=== PATIENT | male | born 1985 | race American Indian/Alaskan Native ===

== ENCOUNTER 2020-06-02 02:56 | Observation (INO) | payer OTHER ==
[2020-06-02] MEDS ORDERED: HYDROmorphone 1 MG/1 ML INJ IV ONE ×2 (03:17→05:06)
[2020-06-02] MEDS ORDERED: KETOROLAC 30 MG/1 ML INJ IV ONE (03:17)
[2020-06-02] MEDS ORDERED: SODIUM CHLORIDE 0.9% 1000 ML 1,000 ML IV ONE (03:17)
[2020-06-02] MEDS ORDERED: diphenhydrAMINE 50 MG/ML VIAL IV ONE (03:17)
--- NOTE | 2020-06-02 03:21 | Emergency Department Report ---
ED General Adult HPI - General Chief complaint: Sickle Cell Crisis Stated complaint: SICKLE CELL CRISIS Time Seen by Provider: 06/02/20 03:12 Source: patient, EMS Mode of arrival: Stretcher Limitations: No Limitations - History of Present Illness Initial comments: 35-year-old male, history of sickle cell anemia, presents to ED with pain crisis. Patient is currently inpatient at [facility] on a 1013. He states he began having pain in his back and bilateral legs a couple of hours ago. Patient states this is a location of his usual pain crises. Patient states pain is unrelieved withhot shower, ibuprofen, and oxycodone so he decided to come to the ED. Patient denies any chest pain, shortness of breath, fever. -: This morning Location: back, left, right, lower extremity Radiation: non-radiation Quality: aching Consistency: constant Improves with: none Worsens with: none Associated Symptoms: denies: chest pain, fever/chills, shortness of breath Treatments Prior to Arrival: NSAID, other (oxycontin) - Related Data Allergies Allergy/AdvReac Type Severity Reaction Status Date / Time morphine Allergy Unknown Verified 06/02/20 03:18 ED Review of Systems ROS: Stated complaint: SICKLE CELL CRISIS Other details as noted in HPI Comment: All other systems reviewed and negative Constitutional: denies: chills, fever Respiratory: denies: shortness of breath Cardiovascular: denies: chest pain Musculoskeletal: as per HPI ED Past Medical Hx - Social History Smoking Status: Current Some Day Smoker Substance Use Type: None ED Physical Exam - General Limitations: No Limitations General appearance: alert, in no apparent distress - Head Head exam: Present: atraumatic, normocephalic - Eye Eye exam: Present: normal appearance, EOMI - ENT ENT exam: Present: mucous membranes moist - Neck Neck exam: Present: normal inspection - Respiratory Respiratory exam: Present: normal lung sounds bilaterally. Absent: respiratory distress - Cardiovascular Cardiovascular Exam: Present: regular rate, normal rhythm - GI/Abdominal GI/Abdominal exam: Present: soft. Absent: distended, tenderness - Extremities Exam Extremities exam: Present: normal inspection - Neurological Exam Neurological exam: Present: alert, oriented X3 - Psychiatric Psychiatric exam: Present: normal affect, normal mood - Skin Skin exam: Present: warm, dry, intact, normal color ED Course Vital Signs 06/02/20 06/02/20 06/02/20 03:05 03:17 03:30 Temperature 98.1 F Pulse Rate 86 85 Respiratory 18 18 12 Rate Blood Pressure 121/57 121/57 O2 Sat by Pulse 96 Oximetry 06/02/20 06/02/20 06/02/20 03:46 04:00 04:16 Temperature Pulse Rate 85 89 102 H Respiratory 12 14 17 Rate Blood Pressure 108/59 108/59 108/59 O2 Sat by Pulse 91 94 95 Oximetry ED Medical Decision Making - Lab Data Result diagrams: 06/02/20 04:06 06/02/20 04:06 Critical care attestation.: If time is entered above; I have spent that time in minutes in the direct care of this critically ill patient, excluding procedure time. ED Disposition Clinical Impression: Sickle cell anemia with crisis Disposition: 09 OP ADMIT IP TO THIS HOSP Is pt being admited?: Yes Condition: Stable Time of Disposition: 05:09
[2020-06-02 04:31] LABS: Hemoglobin 7.2 gm/dl (11.8-15.2); Mean Corpuscular HGB Conc 36 % (32-34); Mean Corpuscular Volume 102 fl (84-94); Platelet Count 398 K/mm3 (140-440); Red Blood Count 1.96 M/mm3 (3.65-5.03)
[2020-06-02 04:36] LABS: Blood Urea Nitrogen 12 mg/dL (9-20); Hemolysis Index 30
[2020-06-02 04:55] LABS: BUN/Creatinine Ratio 24
[2020-06-02 04:57] LABS: Hematocrit 19.9 % (35.5-45.6); Red Cell Distribution Width 23.8 % (13.2-15.2)
[2020-06-02] MEDS ORDERED: SODIUM CHLORIDE 0.9% 500 ML 500 ML IV ONE (05:10)
[2020-06-02] MEDS ORDERED: NALOXONE 0.4 MG/1 ML INJ IV PRN (05:12)
[2020-06-02] MEDS ORDERED: MAGNESIUM HYDROXIDE (MOM) ORAL LIQD UDC PO PRN (05:12)
[2020-06-02] MEDS ORDERED: ONDANSETRON 4 MG/2 ML INJ IV PRN (05:12)
[2020-06-02] MEDS ORDERED: diphenhydrAMINE 50 MG/ML VIAL IV PRN (05:16)
[2020-06-02] MEDS ORDERED: NICOTINE 14 MG/24 HR PATCH TD PRN (05:19)
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
[2020-06-02 08:32] LABS: Total Cells Counted 100
[2020-06-02 08:36] LABS: Anisocytosis 2+
[2020-06-02 08:37] LABS: Ovalocytes 1+; Poikilocytosis 2+; Sickle Cells Rare; Target Cells Few
[2020-06-02 08:38] LABS: Platelet Estimate Consistent w Auto
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
[2020-06-02] MEDS: KETOROLAC 30 MG/1 ML INJ IV SCH ×4 (09:45→23:44)
--- NOTE | 2020-06-02 12:41 | Event Note ---
Date: 06/02/20 Patient admitted this am, Continue current plan of care, will obtain [facility] consult considering NOTED 7000
[2020-06-02] MEDS ORDERED: SODIUM CHLORIDE 0.9% 1000 ML 1,000 ML ONE (14:13)
[2020-06-02] MEDS: HYDROmorphone 2 MG/1 ML INJ IV PRN ×2 (14:22→21:20)
[2020-06-02] MEDS: HEPARIN 5,000 UNIT/1 ML VIAL SUB-Q SCH ×2 (14:23→22:51)
[2020-06-02] MEDS: MULTIVITAMINS ,THERAPEUTIC TAB PO SCH (14:23)
[2020-06-02] MEDS: FOLIC ACID 1 MG TAB PO SCH (14:23)
[2020-06-02] MEDS: D5W/0.45% NACL 1,000 ML IV SCH (14:24)
[2020-06-02] MEDS: GABAPENTIN 300 MG CAP PO SCH ×3 (14:24→22:50)
[2020-06-02] MEDS: oxyCODONE ER 20 MG TAB PO SCH ×3 (16:15→22:50)
[2020-06-02] MEDS: HYDROXYUREA 500 MG CAP PO SCH (19:22)
[2020-06-02] MEDS ORDERED: SENNOSIDES 8.6 MG TAB PO SCH (22:00)
[2020-06-02] MEDS ORDERED: risperiDONE 1 MG TAB PO SCH (22:00)
[2020-06-03] MEDS: D5W/0.45% NACL 1,000 ML IV SCH (03:00)
[2020-06-03] MEDS: HYDROmorphone 2 MG/1 ML INJ IV PRN (03:51)
[2020-06-03] MEDS: oxyCODONE ER 20 MG TAB PO SCH (05:59)
[2020-06-03] MEDS: KETOROLAC 30 MG/1 ML INJ IV SCH (06:00)
[2020-06-03] MEDS: GABAPENTIN 300 MG CAP PO SCH (06:02)
[2020-06-03 06:47] LABS: Mean Corpuscular Volume 97 fl (84-94); Platelet Count 419 K/mm3 (140-440); Red Blood Count 2.39 M/mm3 (3.65-5.03)
[2020-06-03 06:50] LABS: Hematocrit 23.1 % (35.5-45.6); Hemoglobin 8.8 gm/dl (11.8-15.2)
[2020-06-03 06:51] LABS: Mean Corpuscular HGB Conc 35 % (32-34)
[2020-06-03 06:52] LABS: Basophils # (Auto) 0.2 K/mm3 (0.0-0.1); Eosinophils # (Auto) 0.4 K/mm3 (0.0-0.4); Lymphocytes # (Auto) 2.8 K/mm3 (1.2-5.4); Lymphocytes % (Auto) 22.1 % (13.4-35.0); Monocytes # (Auto) 1.6 K/mm3 (0.0-0.8); Monocytes % (Auto) 12.7 % (0.0-7.3)
[2020-06-03 07:30] VITALS: BP 135/81
[2020-06-03] MEDS ORDERED: HYDROmorphone 1 MG/1 ML INJ IV NR (08:58)
[2020-06-03] MEDS: HEPARIN 5,000 UNIT/1 ML VIAL SUB-Q SCH (09:30)
[2020-06-03] MEDS: MULTIVITAMINS ,THERAPEUTIC TAB PO SCH (09:30)
[2020-06-03] MEDS: FOLIC ACID 1 MG TAB PO SCH (09:31)
[2020-06-03] MEDS: HYDROXYUREA 500 MG CAP PO SCH (09:43)
--- NOTE | 2020-06-03 10:10 | Consultation ---
History of Present Illness - Reason for Consult Consult date: 06/03/20 Reason for consult: from [place] - History of Present Psychiatric Illness Per ED Note: 35-year-old male, history of sickle cell anemia, presents to ED with pain crisis. Patient is currently inpatient at [facility] on a 1013. He states he began having pain in his back and bilateral legs a couple of hours ago. Patient states this is a location of his usual pain crises. Patient states pain is unrelieved withhot shower, ibuprofen, and oxycodone so he decided to come to the ED. Patient denies any chest pain, shortness of breath, fever. Kartik Berg is a 35 y/o male patient who was admitted to the hospital for back and leg pain. He has a history of sickle cell anemia. The patient was as inpatient at [facility]. During my interview with the patient he is sitting on side of the bed. He is calm, cooperative and polite. He says he was sent to [facility] because he had a few words with a doctor. He says he sent me for acting out, I guess. The patient says "I wasn't suicidal or homicidal." The patient also presently denies SI/HI or hallucinations of any kind. He denies ever having an attempt of suicide. He also denies any fear of feelings of endangerment. He says he "feels good but in a little pain." He denies any psych history before the [facility] incident. He also denies being on any psych medications. The patient denies any illicit drug use, alcohol or nicotine. PAST PSYCHIATRIC HISTORY: Diagnoses: Denies Suicide attempts or Self-harm behavior: Denies Prior psychiatric hospitalizations: [facility] recently Substance Abuse history: Denies Previous psychiatric medications tried: Denies Outpatient treatment: Denies PAST MEDICAL HISTORY: Sickle cell anemia Family Psychiatric History: None reported or documented SOCIAL HISTORY Marital Status: Single Living Arrangements: alone Employment Status: Disabled Access to guns/weapons: Denies Education: high school History of Abuse: Denies Legal History: None reported REVIEW OF SYSTEMS Constitutional: Negative for weight loss ENT: Negative for stridor Respiratory: Negative for cough or hemoptysis All other systems reviewed and are negative MENTAL STATUS EXAMINATION General Appearance and Behavior: Age appropriate, good hygiene, wearing appropr iate clothes, good eye contact, calm, cooperative, polite Cooperation: Participating/engaged Psychomotor Behavior: Psychomotor normal Mood: good Affect and affective range: congruent with stated mood, Euthymic Thought Process: goal directed Thought Content: Denies Speech: Normal rate, volume and rhythm Suicidal Ideation: Denies Homicidal Ideation: Denies Hallucinations: Denies Impulse Control: Unimpaired Insight and Judgment: Normal insight and judgment Memory: Normal Attention: Normal Orientation: Alert, oriented Assessment and Plan (1) Mental Health Evaluation Treatment Plan No medications at this time Sitter: Per primary Medical: per primary Disposition: Do not recommend psychiatric inpatient treatment Will sign off. Thank you for this consult. The patient to follow up with his primary in 7 to 14 days upon discharge Case staffed with Dr. Fischer Medications and Allergies Allergies Allergy/AdvReac Type Severity Reaction Status Date / Time morphine Allergy Unknown Verified 06/02/20 03:18 Active Meds: Active Medications Bisacodyl (Bisacodyl 10 Mg Rect Supp) 10 mg [place] QDAY PRN PRN Reason: Constipation unrelieved by MOM Diphenhydramine HCl (Diphenhydramine 50 Mg/Ml Vial) 25 mg IV Q6H PRN PRN Reason: Itching Folic Acid (Folic Acid 1 Mg Tab) 1 mg PO QDAY [facility] Last Admin: 06/03/20 09:31 Dose: 1 mg Documented by: Gabapentin (Gabapentin 300 Mg Cap) 300 mg PO Q8HR [facility] Last Admin: 06/03/20 06:02 Dose: 300 mg Documented by: Heparin Sodium (Porcine) (Heparin 5,000 Unit/1 Ml Vial) 5,000 unit SUB-Q Q12HR [facility] Last Admin: 06/03/20 09:30 Dose: 5,000 unit Documented by: Hydromorphone HCl (Hydromorphone 1 Mg/1 Ml Inj) 0.5 mg IV ONCE NR Stop: 06/03/20 13:00 Last Admin: 06/03/20 09:29 Dose: 0.5 mg Documented by: Hydroxyurea (Hydroxyurea 500 Mg Cap) 500 mg PO QDAY [facility] Last Admin: 06/03/20 09:43 Dose: 500 mg Documented by: Dextrose/Sodium Chloride (D5/0.45ns) 1,000 mls @ 100 mls/hr IV DIRECT [facility] Last Admin: 06/03/20 03:00 Dose: 100 mls/hr Documented by: Ketorolac Tromethamine (Ketorolac 30 Mg/1 Ml Inj) 30 mg IV Q6HR [facility] Stop: 06/07/20 05:59 Last Admin: 06/03/20 06:00 Dose: 30 mg Documented by: Magnesium Hydroxide (Magnesium Hydroxide (Mom) Oral Liqd Udc) 30 ml PO Q4H PRN PRN Reason: Constipation Multivitamins (Multivitamins ,Therapeutic Tab) 1 each PO QDAY [facility] Last Admin: 06/03/20 09:30 Dose: 1 each Documented by: Naloxone HCl (Naloxone 0.4 Mg/1 Ml Inj) 0.1 mg IV Q2MIN PRN PRN Reason: Res Rate </= 8 or 02 SAT < 92% Nicotine (Nicotine 14 Mg/24 Hr Patch) 14 mg TD QDAY PRN PRN Reason: smoking cessation Stop: 06/07/20 05:18 Ondansetron HCl (Ondansetron 4 Mg/2 Ml Inj) 4 mg IV Q6H PRN PRN Reason: Nausea And Vomiting Oxycodone HCl (Oxycodone Er 20 Mg Tab) 20 mg PO Q8HR [facility] Last Admin: 06/03/20 05:59 Dose: 20 mg Documented by: Risperidone (Risperidone 1 Mg Tab) 2 mg PO DAILY@2200 [facility] Last Admin: 06/02/20 22:50 Dose: 2 mg Documented by: Senna (Sennosides 8.6 Mg Tab) 17.2 mg PO QHS [facility] Last Admin: 06/02/20 22:50 Dose: 17.2 mg Documented by: Mental Status Exam - Vital signs Last Vital Signs Temp 98.9 F 06/03/20 07:25 Pulse 87 06/03/20 07:25 Resp 18 06/03/20 07:25 BP 135/81 06/03/20 07:25 Pulse Ox 97 06/03/20 07:25 Results Result Diagrams: 06/03/20 06:38 06/02/20 04:06 Abnormal lab results 06/02/20 06/03/20 06/03/20 Range/Units 05:20 06:38 06:38 WBC 12.5 H (4.5-11.0) K/mm3 RBC 2.39 L (3.65-5.03) M/mm3 Hgb 8.8 L (11.8-15.2) gm/dl Hct 23.1 L (35.5-45.6) % MCV 97 H (84-94) fl MCH 37 H (28-32) pg MCHC 35 H (32-34) % RDW 22.0 H (13.2-15.2) % Hitchcock % (Auto) 12.7 H (0.0-7.3) % [place] # (Auto) 1.6 H (0.0-0.8) K/mm3 Baso # (Auto) 0.2 H (0.0-0.1) K/mm3 Percent Retic 12.68 H (0.78-2.58) % Lactate Dehydrogenase 445 H (91-180) units/L Crossmatch See Detail All other labs normal.
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
== END 2020-06-03 15:28 | disposition home or self-care (01) ==
LOC: ED 02:56 → 4A 05:12
PROVIDERS: ADMIT Hospitalist; ATTEND Internal Medicine
DX: D57.00 Hb-SS disease with crisis, unspecified (principal); D64.9 Anemia, unspecified; F22 Delusional disorders; F17.210 Nicotine dependence, cigarettes, uncomplicated; Z90.49 Acquired absence of other specified parts of digestive tract
CPT/HCPCS: 36415; 36430; 80048; 83615; 85025; 85045; 86850; 86900; 86901; 86920; 96361; 96372; 96374; 96375; 96376; 99284; G0378; J1170; J1200; J1644; J1885; J7030; J7040; P9016; 85007